=== PATIENT | male | born 1995 | race Caucasian/White ===

== ENCOUNTER 2017-01-22 14:58 | Emergency (ER) | payer MEDICAID ==
[~2017-01-22] VITALS: Ht 167.6 cm; Wt 56.7 kg
--- OUTSIDE RECORDS SUMMARY | 2017-01-22 15:07 | External Medical Summary Rpt | CCD ---
Author Author , [employer] Organization [employer] Address Unknown Phone [email or web address] Purpose Continuity of Care Document - through 2016 Problems Code Diagnosis DOS Provider Status H11.32 CONJUNCTIVA L HEMORRHAGE, LEFT EYE S00.83XA CONTUSION OF OTHER PART OF HEAD, INITIAL ENCOUNTER S02.2XXA FRACTURE OF NASAL BONES, INIT ENCNTR FOR CLOSED FRACTURE S22.32XA FRACTURE OF ONE RIB, LEFT SIDE, INIT FOR CLOS FX T14.8 OTHER INJURY OF UNSPECIFIED BODY REGION Z00.8 ENCOUNTER FOR OTHER GENERAL EXAMINATION
--- OUTSIDE RECORDS SUMMARY | 2017-01-22 15:07 | External Medical Summary Rpt | CCD ---
Author Author , [employer] Organization [employer] Address Unknown Phone [email or web address] Purpose Continuity of Care Document - through [...]
--- OUTSIDE RECORDS SUMMARY | 2017-01-22 15:08 | External Medical Summary Rpt ---
Author Author [facility] [place], [employer] Organization [employer] Address Unknown Phone Unavailable
--- OUTSIDE RECORDS SUMMARY | 2017-01-22 15:08 | External Medical Summary Rpt | CCD ---
Demographics Preferred Language Panamanian Marital Status Unknown Zoroastrianism Affiliation Unknown Race Unknown Ethnic Group Unknown Author Author , [facility] JER[facility] Address Unknown Phone Immunization No patient found.
--- OUTSIDE RECORDS SUMMARY | 2017-01-22 15:08 | External Medical Summary Rpt | CCD ---
Demographics Preferred Language Maldivian Marital Status Unknown Mandaen Affiliation Unknown Race Unknown Ethnic Group Unknown Author Author , [facility] Address Unknown Phone Immunization No patient found.
--- OUTSIDE RECORDS SUMMARY | 2017-01-22 15:08 | External Medical Summary Rpt | CCD ---
Author Author [employer] Organization [employer] Address Unknown Phone Unavailable Purpose Continuity of Care Document - through 2016
--- NOTE | 2017-01-22 15:26 | Urgent Treatment Center Report ---
History of Present Issue Date/Time Seen by Provider 01/22/17 1520 Visit Reason Pt arrived:Walked Presenting Problem:PT C/O LEFT FORARM PAIN FROM [age] YEAR OLD RAZOR BLADE INJURY, NUMBNESS FROM FOREARM TO FINGERS. Location if Accident: Onset of symptoms date/time:/ or onset unknown for:MEDICAL HX UNKNOWN Have you (or family members/close friends) recently traveled outside the [place]? N If Yes, where/when: Have you had exposure to infectious disease within the past month? TB? Other? Specify: Patient state that about a year ago he accidently cut himself with razor State that now he is having pain in the arm for about the last 4-5 months that he has not seen family doctor for State that at times there on the scar it feels numb and tingling and pain that shoots down into his fingers State that pain comes and goes. State that at the time of the accident they told him that he cut ligaments, nerves and tendons ALLERGIES Coded Allergies: No Known Allergies (09/03/16) History Medical History General CAD? No Angina: No MD: No Hypertension? No Hyperlipidemia? No CHF? No DVT? No PE? No COPD? No Asthma? No Anemia? No GERD? No Gastric ulcers? No GI Bleed? No Hernia? No Thyroid Problems? No Hypothyroidism? No CVA? No Seizures? No Diabetes? No Renal Insuffiency? No UTI? No Stones? No BPH? No GB Disease: No Nephritic Syndrome? No Asplenia? No Hepatitis? No Sickle Cell Disease? No Arthritis? No Migraines? No Cataracts? No Glaucoma? No MRSA? No HIV? No TB? No Anxiety? No Depression? No Cancer? No Site: n Immunization HX DT/Tetanus Unknown Surgical Hx Previous Surgery?N Social History Smoking Hx Smoker: Never Smoker Tobacco: No Alcohol Alcohol: Yes Review of Systems All Other Systems Reviewed and Negative Physical Exam Vital Signs Vital Signs Date Time Temp Pulse Resp B/P Pulse O2 O2 Flow FiO2 Ox Delivery Rate 01/22 1511 98.8 68 18 147/78 100 General Appearance normal appearance, WD/WN, no apparent distress Ear, Nose, Throat hearing grossly normal, normal ENT inspection Respiratory Status Yes: trachea midline, chest symmetrical, non tender chest. No: respiratory distress. Lung Sounds bilateral: normal breath sounds, lungs clear. Cardiovascular normal exam, regular rate/rhythm, no peripheral edema Extremities Pain in left forearm and numbness and tingling on scar from where he cut himself with a razorblade over a year ago. Bilateral temperature the same, good reflexs, good pulses, good cap refill able to move fingers Reports that pain comes and goes Neurologic alert, normal exam, oriented x 3 Medical Decision Making LABS/Meds/Orders Pt receiving controlled substance in ED? No Departure Departure Time of Disposition 1538 Disposition DC Home or Self Care(routine) Clinical Impression Primary Impression: Arm pain Qualifiers: Laterality: left Qualified Code: M79.602 - Pain in left arm Condition STABLE Referrals Farhana Mahmood APRN (Family): Today after leaving ER Make appointment and see family doctor for further testing Patient Instructions DI for Arm Pain, Scar Tissue (Alternative Therapy), Scars - - Overview Additional Instructions Follow up with family doctor for further treatment and evaluation Take medication as prescribed REturn if needed If you notice change in temps in arms or worsening of symptoms go straight to er Discharge Counseling Counseled pt/family regarding diagnosis, medications/RX, home care, follow up needs Prescriptions Current Visit Scripts Ibuprofen (Ibuprofen 800MG) 800 MG PO Q6HP PRN pain #30 TAB at 0438
[2017-01-22] MEDS ORDERED: IBUPROFEN800 MG PO (15:41)
[2017-01-22 15:44] VITALS: BP 147/78
== END 2017-01-22 15:44 | disposition home or self-care (01) ==
LOC: UTC 14:58
DX: M79.602 Pain in left arm (principal)

== ENCOUNTER 2017-02-02 16:10 | Emergency (ER) | payer MEDICAID ==
[~2017-02-02] VITALS: Ht 167.6 cm; Wt 56.7 kg
[~2017-02-02 16:10] MED LIST: IBUPROFEN800 MG PO
--- OUTSIDE RECORDS SUMMARY | 2017-02-02 16:31 | External Medical Summary Rpt | CCD ---
Demographics Preferred Language Ethiopian Marital Status Unknown Mandaen Affiliation Unknown Race Unknown Ethnic Group Unknown Author Author , [facility] Address Unknown Phone Immunization No patient found.
--- OUTSIDE RECORDS SUMMARY | 2017-02-02 16:31 | External Medical Summary Rpt | CCD ---
Author Author , [facility] Address Unknown Phone [email or web address] Purpose Continuity of Care Document - through [...]
--- OUTSIDE RECORDS SUMMARY | 2017-02-02 16:31 | External Medical Summary Rpt | CCD ---
Demographics Preferred Language Nauruan Marital Status Unknown Oriental Orthodox Affiliation Unknown Race Unknown Ethnic Group Unknown Author Author , [facility] Address Unknown Phone Immunization No patient found.
--- OUTSIDE RECORDS SUMMARY | 2017-02-02 16:31 | External Medical Summary Rpt | CCD ---
Author Author , [facility] Address Unknown Phone Purpose Continuity of Care Document - through [...]
--- NOTE | 2017-02-02 16:33 | Emergency Room Report ---
History of Present Illness Time Seen by 1612 Presenting Problem in Triage Pt arrived:Walked Presenting Problem:RIGHT AXILLAE ABSCESS X 3 DAYS Onset of symptoms date/time:/ or onset unknown for:MEDICAL HX UNKNOWN Treatment Prior to Arrival: [employer] Provided by: Sepsis Risk Assessment: Temp: 98.5 B/P: MAP: Pulse: 84 Resp: 18 Recent fever? N Clinical Suspician of Infection? N Mental Status: 1 - Regular (Normal Baseline) Sepsis Risk:Low Sepsis Risk Have you (or family members/close friends) recently traveled outside the [place]? N If Yes, where/when: Have you had exposure to infectious disease within the past month? TB? Other? Specify: Comment The patient complains of a tender knot in his RIGHT axilla for about 3 days to 4 days. No fever. No history of similar problems. No history of abscesses. No infections on his RIGHT upper extremity, no recent cat scratches or bites. ALLERGIES Coded Allergies: No Known Allergies (02/02/17) Home Medications Active Scripts Ibuprofen (Ibuprofen 800MG) 800 MG PO Q6HP PRN pain #30 TAB Prov: 01/22/17 History Medical History General CAD? No Angina: No MO: No Hypertension? No Hyperlipidemia? No CHF? No DVT? No PE? No COPD? No Asthma? No Anemia? No GERD? No Gastric ulcers? No GI Bleed? No Hernia? No Thyroid Problems? No Hypothyroidism? No CVA? No Seizures? No Diabetes? No Renal Insuffiency? No End Stage Renal Disease? No UTI? No Stones? No BPH? No GB Disease: No Nephritic Syndrome? No Asplenia? No Hepatitis? No Sickle Cell Disease? No Arthritis? No Migraines? No Cataracts? No Glaucoma? No MRSA? No HIV? No TB? No Anxiety? No Depression? No Cancer? No Site: n Immunization Hx Ped.Immunizations UTD Yes DT/Tetanus Unknown Surgical Hx Previous Surgery?N Social History Smoking Hx Smoker: Unknown if Ever Smoked Tobacco: Yes Type Chew Packs/day N/A Are you/the child exposed to second-hand smoke: No Alcohol Alcohol: Yes Review of Systems All Other Systems Reviewed and Negative Constitutional denies fever Skin see HPI Physical Exam Vital Signs Vital Signs Date Time Temp Pulse Resp B/P Pulse O2 O2 Flow FiO2 Ox Delivery Rate 02/02 1649 81 18 112/76 99 02/02 1618 98.5 84 18 97 General Appearance no apparent distress Respiratory Status No: respiratory distress. Cardiovascular regular rate/rhythm, normal peripheral pulses Extremities tender 1.5 cm subcutaneous mass in the RIGHT axilla which feels like a lymph node. There is no cutaneous abscess overlying this. No exfoliation or erythema. No other adenopathy. No infections of the RIGHT upper extremity or surrounding skin. Neurovascular status intact. Neurologic alert, no motor/sensory deficits Medical Decision Making LABS/Meds/Orders Pt receiving controlled substance in ED? No Departure Departure Disposition DC Home or Self Care(routine) Clinical Impression Primary Impression: Lymphadenopathy, axillary Condition STABLE Referrals Farhana Mahmood APRN (Family) Additional Instructions Follow-up with Farhana Mahmood in one week for recheck. Return to the emergency department if the areas increasing in size, severe pain, or fever develops. Prescriptions Current Visit Scripts Doxycycline Hyclate (Vibramycin) 100 MG PO BID #20 CAP IBUPROFEN MICRONIZED (IBUPROFEN 600MG) 600 MG PO Q8 #20 TAB ED Critical Care Critical Care No at 1651
[2017-02-02] MEDS ORDERED: DOXYCYCLINE HY100 M4 PO (16:38)
[2017-02-02] MEDS ORDERED: IBUPROFEN 600M600 MG PO (16:38)
[2017-02-02 16:49] VITALS: BP 112/76
== END 2017-02-02 16:50 | disposition home or self-care (01) ==
LOC: ER 16:10
DX: R59.0 Localized enlarged lymph nodes (principal)